=== PATIENT | female | born 1995 | race Caucasian/White ===

== ENCOUNTER 2018-10-09 18:23 | Inpatient (IN) | payer OTHER ==
[2018-10-09 19:24] LABS: RUPTURE FETAL MEMBRANES NEGATIVE (NEGATIVE)
[2018-10-09] MEDS ORDERED: CARBOPROST 250 MCG INJ IM (21:00)
[2018-10-09] MEDS ORDERED: MISOPROSTOL 200 MCG TAB PR (21:00)
[2018-10-09] MEDS ORDERED: OXYTOCIN 30 UNITS/LR 500 ML IV (21:00)
[2018-10-09] MEDS ORDERED: LIDOCAINE 1% (MPF) 30 ML INJ INJ (21:00)
[2018-10-09] MEDS ORDERED: METHYLERGONOVINE 0.2 MG INJ IM (21:00)
[2018-10-09 21:11] LABS: ADD UMIC YES; UR ASCORBIC ACID 40 mg/dL (NEGATIVE); UR BACTERIA FEW /HPF (NONE SEEN); UR BILIRUBIN (Dip) NEGATIVE (NEGATIVE); UR BLOOD (Dip) NEGATIVE (NEGATIVE); UR CLARITY CLOUDY (CLEAR); UR COLOR AMBER (YELLOW); UR GLUCOSE (Dip) NEGATIVE (NEGATIVE); UR KETONES (Dip) TRACE mg/dL (NEGATIVE); UR LEUKOCYTE ESTERASE (Dip) NEGATIVE Leu/ul (NEGATIVE); UR MUCUS MANY /HPF (NONE SEEN); UR NITRITE (Dip) NEGATIVE (NEGATIVE); UR RBC 1 /HPF (0-5); UR SQUAMOUS EPITHELIAL CELL MANY /HPF (FEW); UR TOTAL PROTEIN (Dip) 2+ mg/dl (NEGATIVE); UR UROBILINOGEN (Dip) 2+ mg/dL (NEGATIVE); UR WBC 7 /HPF (0-5)
[2018-10-09] MEDS: LACTATED RINGER'S 1,000 ML IV (21:48)
[2018-10-09 22:02] LABS: ADD MAN DIFF? NO
[2018-10-09 22:03] LABS: WHITE BLOOD COUNT 4.5 10^3/ul (4.8-10.8)
[2018-10-09 22:03] LABS: BASOPHILS % 0.2 % (0.0-2.0); EOSINOPHILS # 0.1 10^3/ul (0.0-0.5); EOSINOPHILS % 1.3 % (0.0-7.0); HEMATOCRIT 30.9 % (37.0-47.0); LYMPHOCYTES # 1.9 10^3/ul (0.8-2.9); LYMPHOCYTES % 41.9 % (15.0-51.0); MEAN CORPUSCULAR HEMOGLOBIN 25.6 pg (29.0-33.0); MEAN CORPUSCULAR HGB CONC 32.4 g/dl (32.0-37.0); MEAN CORPUSCULAR VOLUME 79.2 fl (82.0-101.0); MEAN PLATELET VOLUME 12.2 fl (7.4-10.4); MONOCYTE # 0.5 10^3/ul (0.3-0.9); MONOCYTES % 10.6 % (0.0-11.0); NEUTROPHIL # 2.1 10^3/ul (1.6-7.5); NEUTROPHILS % 45.6 % (39.0-77.0); PLATELET COUNT 213 10^3/UL (140-415); RED CELL DISTRIBUTION WIDTH 16.8 % (11.5-14.5)
[2018-10-09 22:28] LABS: INR 0.87; PROTIME 11.9 Sec (11.9-14.9); PT RATIO 0.9
[2018-10-09 22:29] LABS: PARTIAL THROMBOPLASTIN TIME 29.8 Sec (23.0-35.0)
[2018-10-09 22:34] LABS: AMPHETAMINE/METHAMPHETAMINE Negative (NEGATIVE); BARBITURATES Negative (NEGATIVE); BENZODIAZEPINES Negative (NEGATIVE); CANNABINOIDS Negative (NEGATIVE); COCAINE Negative (NEGATIVE); OPIATES Negative (NEGATIVE)
[2018-10-09 22:52] LABS: HEPATITIS B SURFACE ANTIGEN NEGATIVE (NEGATIVE)
[2018-10-09] MEDS ORDERED: MISOPROSTOL 50 MCG CAPSULE (23:28)
[2018-10-09] MEDS: MISOPROSTOL 50 MCG CAPSULE PO (23:38)
[2018-10-10] MEDS: LACTATED RINGER'S 1,000 ML IV* ×2 (00:53→17:09)
[2018-10-10] MEDS: MISOPROSTOL 50 MCG CAPSULE PO ×2 (04:33→07:30)
[2018-10-10] MEDS: LACTATED RINGER'S 1,000 ML IV ×2 (04:33→10:07)
[2018-10-10] MEDS: OXYTOCIN 30 UNITS/LR 500 ML IV ×4 (09:24→16:03)
[2018-10-10] MEDS: BUTORPHANOL 2 MG INJ IV (09:26)
[2018-10-10] MEDS ORDERED: DIPHENHYDRAMINE 50 MG INJ IV ×2 (10:00→13:30)
[2018-10-10] MEDS ORDERED: KETOROLAC 30 MG INJ IV (10:00)
[2018-10-10] MEDS ORDERED: ONDANSETRON 4 MG INJ IV ×2 (10:00→13:30)
[2018-10-10] MEDS ORDERED: NALOXONE (0.4 MG/ML) INJ IV (10:00)
[2018-10-10] MEDS ORDERED: HYDROmorphONE 0.5 MG/0.5 ML SYG IV ×2 (10:00)
[2018-10-10] MEDS ORDERED: FENTAnyl 2MCG/ML-ROPIV 0.2% 100 ML BAG EPI (10:00)
[2018-10-10] MEDS ORDERED: NA PHOSPHATE/BIPHOS 133 ML ENEMA PR (13:30)
[2018-10-10] MEDS ORDERED: MISOPROSTOL 200 MCG TAB PR (13:30)
[2018-10-10] MEDS ORDERED: HYDROCODONE/APAP (5/325) TAB PO ×2 (13:30)
[2018-10-10] MEDS ORDERED: DIBUCAINE 1% 30 GM OINT TOP (13:30)
[2018-10-10] MEDS ORDERED: MAGNESIUM HYDROXIDE 30ML CUP PO (13:30)
[2018-10-10] MEDS ORDERED: DIPHENHYDRAMINE 25 MG CAP PO (13:30)
[2018-10-10] MEDS ORDERED: ONDANSETRON 4 MG TAB PO (13:30)
[2018-10-10] MEDS ORDERED: SENNA/DOCUSATE NA (8.6MG/50MG) TAB PO (13:30)
[2018-10-10] MEDS ORDERED: OXYTOCIN 30 UNITS/LR 500 ML IV (13:30)
[2018-10-10] MEDS ORDERED: CARBOPROST 250 MCG INJ IM (13:30)
[2018-10-10 15:36] LABS: RAPID PLASMA REAGIN NONREACTIVE (NR)
[2018-10-10] MEDS: BENZOCAINE 20% 56 ML SPRAY TOP (16:15)
[2018-10-10] MEDS: LANOLIN HPA 1 PKT TOP (16:16)
[2018-10-10] MEDS: WITCH HAZEL/GLYCERIN PAD PR (16:16)
[2018-10-10] MEDS: IBUPROFEN 600 MG TAB PO ×2 (17:43→18:00)
[2018-10-10] MEDS: SENNA/DOCUSATE NA (8.6MG/50MG) TAB PO (21:07)
[2018-10-10] MEDS ORDERED: MISOPROSTOL 50 MCG CAPSULE PO (23:30)
[2018-10-11] MEDS: IBUPROFEN 600 MG TAB PO ×5 (00:55→23:35)
[2018-10-11] MEDS: LANOLIN HPA 1 PKT TOP (01:06)
[2018-10-11] MEDS: LACTATED RINGER'S 1,000 ML IV* ×2 (07:00→13:30)
[2018-10-11 07:29] LABS: ADD MAN DIFF? NO
[2018-10-11 07:31] LABS: WHITE BLOOD COUNT 8.8 10^3/ul (4.8-10.8)
[2018-10-11 07:31] LABS: BASOPHILS % 0.1 % (0.0-2.0); EOSINOPHILS # 0.1 10^3/ul (0.0-0.5); EOSINOPHILS % 1.2 % (0.0-7.0); HEMATOCRIT 27.4 % (37.0-47.0); HEMOGLOBIN 8.7 g/dl (12.0-16.0); LYMPHOCYTES # 2.4 10^3/ul (0.8-2.9); LYMPHOCYTES % 27.4 % (15.0-51.0); MEAN CORPUSCULAR HEMOGLOBIN 25.2 pg (29.0-33.0); MEAN CORPUSCULAR HGB CONC 31.8 g/dl (32.0-37.0); MEAN CORPUSCULAR VOLUME 79.4 fl (82.0-101.0); MEAN PLATELET VOLUME 12.5 fl (7.4-10.4); MONOCYTE # 0.6 10^3/ul (0.3-0.9); NEUTROPHIL # 5.6 10^3/ul (1.6-7.5); NEUTROPHILS % 63.8 % (39.0-77.0); PLATELET COUNT 184 10^3/UL (140-415); RED BLOOD COUNT 3.45 10^6/ul (4.20-5.40); RED CELL DISTRIBUTION WIDTH 16.8 % (11.5-14.5)
[2018-10-11] MEDS: SENNA/DOCUSATE NA (8.6MG/50MG) TAB PO ×2 (09:55→21:47)
[2018-10-11] MEDS ORDERED: IBUPROFEN 600 MG TAB PO (18:00)
[2018-10-12] MEDS: IBUPROFEN 600 MG TAB PO ×2 (05:39→11:48)
[2018-10-12] MEDS: VARICELLA VACCINE LIVE/PF 1,350 UNIT/0.5 ML ML SC* (09:00)
[2018-10-12] MEDS: SENNA/DOCUSATE NA (8.6MG/50MG) TAB PO (09:00)
[2018-10-12] MEDS: DIPHTH/TET/ACEL PERTUSS (ADULT) 0.5 ML VIAL IM* (09:22)
[2018-10-12] MEDS: MEASLES,MUMPS,RUBELLA VACCINE INJ SC* (11:09)
== END 2018-10-12 14:15 | disposition home or self-care (01) | DRG 807 ==
LOC: OBT 18:23 → PP1 10-10 15:05 → L-D 18:23 → OBT 21:30 → L-D 21:30
PROVIDERS: Specialist
PROC: 10E0XZZ Delivery of Products of Conception, External Approach (ICD-10-PCS; principal; 2018-10-10)
PROC: 0HQ9XZZ Repair Perineum Skin, External Approach (ICD-10-PCS; 2018-10-10)
DX: O99.324 Drug use complicating childbirth (principal); O70.0 First degree perineal laceration during delivery; F15.11 Other stimulant abuse, in remission; F12.11 Cannabis abuse, in remission; Z3A.39 39 weeks gestation of pregnancy; Z37.0 Single live birth
CPT/HCPCS: 62319; 76815; 76818; 80307; 81001; 84112; 85025; 85610; 85730; 86592; 86850; 86900; 86901; 87086; 87340; 90716